=== PATIENT | male | born 1960 | race Caucasian/White ===

== ENCOUNTER 2025-06-02 09:27 | Outpatient (REF) | payer OTHER, SELFPAY | END 2025-06-02 09:28 | disposition home or self-care (01) | LOC: HO.HKASLDS 09:27 | PROVIDERS: PCP Hospitalist; Referring Provider Hospitalist; Visit Provider Internal Medicine Nephrology | DX: I12.9 Hypertensive chronic kidney disease with stage 1 through stage 4 chronic kidney disease, or unspecified chronic kidney disease (principal); N18.31 Chronic kidney disease, stage 3a; Z79.899 Other long term (current) drug therapy; Z87.891 Personal history of nicotine dependence | CPT/HCPCS: 99202 ==

== ENCOUNTER 2025-06-02 09:27 | Outpatient (AMB) | payer OTHER, SELFPAY ==
--- OUTSIDE RECORDS SUMMARY | 2023-12-12 04:00 | XMS_ITS ---
Author Organization [facility] Address [address] [place] [id number] Care Team Providers Care Senior Cobol Developer Name Role Phone Ranjit Butts Unavailable [phone] Encounters Encounter Location Date Provider Diagnosis [facility] [address] [id number] 12/12/2023 Ranjit Butts Plan Of Treatment No Information Progress Notes * Sid LAKEOB:1960 ( 65 yo M)Acc No.[id number]:12/12/2023 Progress Notes Patient: David LA Provider: Klarissa Butts DPM :1960 A ge:63 Y S ex:Male Date:12/12/2023 Address:[address] [place], [place] [id number] Subjective: * Chief Complaints: * * Medical History: Objective: * Vitals: Assessment: Plan: * Treatment: * Images: * The named appointment provid er may or may not be the originator of this progress note, and it is not deemed complete until electronically signed by the appointment provider. Sign off status: Pending * Provider: Klarissa Butts DPM Date: 0 12/12/2023 Generated for Joey de paz/Levi/Emily on: 08/02/2024 10:21 AM EST
--- NOTE | 2025-06-02 09:29 | HO.NEPHOV ---
Vital Signs 06/02/25 09:41 Height 5 ft 11 in Weight 272 lb BMI 37.9 BP 90/60 Blood Pressure Location Lt brachial Position Sitting Pulse 74 Pulse Source Pulse Oximeter Pulse Oximetry (%) 96 Oxygen Delivery Method Room Air Intake Visit Reasons: ENP: CKD STG 3-LVM Environmental Change Analyst Required: No Accompanied by: Spouse Allergies No Known Allergies Allergy (Verified 06/02/25 09:41) HPI Comments Details: I had the pleasure of seeing David in consultation for chronic kidney disease and hypertension. He is 65 years of age and has known coronary artery disease who is status post stenting. His BMI has been high. He has history of atrial fibrillation and had undergone ablation in [facility]. He has history of heart failure but denies CVA, known KARIME, PAD, carotid stenosis or proteinuria. He denies taking excessive nonsteroidal anti-inflammatories, new bone or back pain, epistaxis, photosensitivity, skin rashes, hematuria, hearing deficits, recurrent sinusitis. 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 He is currently taking Zepbound for weight management. His recent serum creatinine has been 1.48. He has not been able to tolerate CPAP. He has some neuropathy( ? etiology) as well as restless legs. He has cut back on his alcohol intake. He denied any new specific complaints at the time of this office visit. [facility] Medical History (Updated 06/02/25 @ 09:30 by Nicholas Oscar MD) Hypomagnesemia Obesity History of heart failure Osteoarthritis cervical spine HLD (hyperlipidemia) COPD with emphysema Hypertension Coronary disease Atrial fibrillation Surgical History S/P coronary artery stent placement S/P ablation of atrial fibrillation Family History Mother Heart disease Hypertension Father Heart disease Hypertension Social History Alcohol intake: current Patient Tobacco Use Status: Former Tobacco user Substance Use Type: Marijuana Physical Exam Vital Signs: Last Vital Signs Pulse 74 06/02/25 09:41 BP 90/60 06/02/25 09:41 Pulse Ox 96 06/02/25 09:41 Oxygen Delivery Method Room Air 06/02/25 09:41 BMI result Body Mass Index 37.9 Const General: comfortable and no acute distress Orientation/consciousness: patient oriented x3 HEENT Head: Yes normocephalic Mouth: Normal oral and palatal mucosa present Eyes EOM: EOMs intact bilaterally Neck Neck: Yes supple Resp Auscultation: clear to auscultation bilaterally Cardio Jugular venous distension: no JVD Rate: regular rate GI Palpation (GI): Soft to palpation Auscultation: normal bowel sounds General: Yes no CVA tenderness Back/Spine/Pelvis Back: no CVA tenderness Skin General skin exam: no rashes or lesions noted Neuro General: patient oriented x3 and moves all extremities Extrem General: Yes no pedal edema Assessment & Plan Assessment & Plan (1) CKD (chronic kidney disease) stage 3, GFR 30-59 ml/min: Code(s): N18.30 - Chronic kidney disease, stage 3 unspecified Category: Medical Qualifiers: Chronic kidney disease stage 3 subtype: stage 3a (GFR 45-59) Qualified Code(s): N18.31 - Chronic kidney disease, stage 3a (2) Hypertension: Code(s): I10 - Essential (primary) hypertension Category: Medical Qualifiers: Hypertension type: primary hypertension Qualified Code(s): I10 - Essential (primary) hypertension Plan David has stage III CKD likely from vascular disease. He is known to coronary artery disease and had undergone PCI as well as stenting. He is at risk for secondary FSGS given his BMI. Given history of heart failure and CKD, I have ordered immunofixation to explore whether he has any amyloidosis ( also has some neuropathic symptoms). He is on JAMES-inhibitor, Zepbound as well as statins. He has history of heart failure and is closely followed up by Cardiology. He should discuss with his PCP / pulmonary MD re CPAP. I have ordered urine studies, renal imaging and follow-up CKD labs as well as 24 hour urine for cr cl. I did not make any medication changes today but is a potential candidate for SGLT2 i as well as amiloride( hypo magnesemia). He is due to have repeat ECHO. All these have been discussed in detail and answered all questions. Follow-up given. Orders: Orders Protein Creatinine Ratio, Ur 3 Months I10 - Essential (primary) hypertension, N18.31 - Chronic kidney disease, stage 3a Immunofixation, Random Urine 3 Months I10 - Essential (primary) hypertension, N18.31 - Chronic kidney disease, stage 3a Immunofixation Pnl, Serum 3 Months I10 - Essential (primary) hypertension, N18.31 - Chronic kidney disease, stage 3a Parathyroid Hormone Intact 3 Months I10 - Essential (primary) hypertension, N18.31 - Chronic kidney disease, stage 3a Vitamin D 25-OH Total 3 Months I10 - Essential (primary) hypertension, N18.31 - Chronic kidney disease, stage 3a Phosphorus 3 Months I10 - Essential (primary) hypertension, N18.31 - Chronic kidney disease, stage 3a Calcium 3 Months I10 - Essential (primary) hypertension, N18.31 - Chronic kidney disease, stage 3a Blood Urea Nitrogen 3 Months I10 - Essential (primary) hypertension, N18.31 - Chronic kidney disease, stage 3a Creatinine 3 Months I10 - Essential (primary) hypertension, N18.31 - Chronic kidney disease, stage 3a Anti DNA DS Antibody 3 Months I10 - Essential (primary) hypertension, N18.31 - Chronic kidney disease, stage 3a Proteinase 3 PR3 Antibodies 3 Months I10 - Essential (primary) hypertension, N18.31 - Chronic kidney disease, stage 3a Myeloperoxidase Antibody 3 Months I10 - Essential (primary) hypertension, N18.31 - Chronic kidney disease, stage 3a Complement C3 3 Months I10 - Essential (primary) hypertension, N18.31 - Chronic kidney disease, stage 3a Complement C4 3 Months I10 - Essential (primary) hypertension, N18.31 - Chronic kidney disease, stage 3a Creatinine Clearance Urine 24U 2 Months I10 - Essential (primary) hypertension, N18.31 - Chronic kidney disease, stage 3a US renal BI 2 Months I10 - Essential (primary) hypertension, N18.31 - Chronic kidney disease, stage 3a Electrolytes 3 Months I10 - Essential (primary) hypertension, N18.31 - Chronic kidney disease, stage 3a Anti Glomerular Basement Memb 3 Months I10 - Essential (primary) hypertension, N18.31 - Chronic kidney disease, stage 3a Phospholipase A2 Receptor Pnl 3 Months I10 - Essential (primary) hypertension, N18.31 - Chronic kidney disease, stage 3a US renal doppler 2 Months I10 - Essential (primary) hypertension, N18.31 - Chronic kidney disease, stage 3a Coding Level of Care Code New Pt Level 4 (56390) Diagnoses Stage 3a chronic kidney disease N18.31 Chronic kidney disease stage 3 subtype: stage 3a (GFR 45-59) Primary hypertension I10 Hypertension type: primary hypertension
[2025-06-02 09:41] VITALS: BP 90/60; PULSE 74; O2SAT 96; BMI 37.9
--- OUTSIDE RECORDS SUMMARY | 2025-06-02 10:21 | XMS_ITS | Clinical Summary ---
Author Organization 175 [facility] Address [address] [place] [address] Phone Care Team Providers Care Remote Sensing Advisor Name Role Phone Mack Díaz MD Primary Care Provider [phone] Allergies No known active allergies Medications coenzyme Q-10 30 mg capsule Take 1 capsule (30 mg total) by mouth 1 (one) time each day. OTC Active pravastatin (PRAVACHOL) 20 mg tablet Take 1 tablet (20 mg total) by mouth 1 (one) time each day. 90 each 3 07/28/19 25 026 Active omeprazole (PriLOSEC) [address] capsule Take 1 capsule (40 mg total) by mouth 1 (one) time each day. Do not crush or chew. 90 capsule 3 09/03/19 25 Active allopurinoL (ZYLOPRIM) 300 mg tablet Take 1 tablet (300 mg total) by mouth 1 (one) time each day. 90 tablet 3 09/08/19 25 Active amLODIPine (NORVASC) 10 mg tablet Take 1 tablet (10 mg total) by mouth 1 (one) time each day. 90 tablet 3 09/08/19 25 Active gabapentin (NEURONTIN) 100 mg capsule Take 1 capsule (100 mg total) by mouth 3 (three) times a day. 90 each 1 11/28/19 25 Active Plavix 75 mg tablet Take 1 tablet (75 mg total) by mouth 1 (one) time each day. Prescribed by cardiology at [facility]. 10/18/19 25 Active ipratropium-al buteroL (Combivent Respimat) 20-100 mcg/actuation inhaler Inhale 1 puff by mouth every 6 (six) hours if needed for wheezing. 1 each 12/18/19 25 026 Active Eliquis 5 mg tablet TAKE 1 TABLET BY MOUTH TWICE A DAY 180 tablet 1 03/11/20 25 Active varenicline tartrate (CHANTIX) 0.5 mg tablet TAKE 1 TABLET BY MOUTH TWICE A DAY 180 tablet 1 02/20/20 25 Active lisinopril (PRINIVIL,ZEST RIL) 40 mg tablet TAKE 1 TABLET BY MOUTH 1 TIME EACH DAY. 90 tablet 03/05/20 25 Active magnesium oxide (MAG-OX) 400 mg (241.3 elemental magnesium) tablet TAKE 1 TABLET BY MOUTH 1 (ONE) TIME EACH DAY. 90 tablet 05/26/20 25 Active magnesium oxide 400 mg magnesium capsule Take 400 mg by mouth 1 (one) time each day. 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 Patient has cardiac cath done ~ LMCA chiquis, LAD <30%, OM1 95% RCA 60%. Stent place in the OM1 which was 95% occulted. Pulmonary nodules 11/04/2024 Assessment & Plan (11/04/2024 4:24 PM EDT): Mr. Pederson is a 64 y.o. male who is part of the lung cancer screening program at [facility] and had his low-dose screening CT on 08/16/2024 which was given a lung RADS score of 4 due to new conglomerate of nodules in the right lower lobe. Due to this finding the patient was presented at multidisciplinary thoracic tumor board conference on 08/25/2024 with recommendations to repeat a chest CT in 3 months time for which he presents for review today. his most recent chest CT scan which was performed 10/21/2024 and shows interval resolution of nodular densities in the lateral right lower lobe. He was given a lung RADS 2 consistent with benign ideology and recommendations for month screening with next LDCT scan due in October 2025. Will be referring back to the lung cancer screening program Hypomagnesemia 09/05/2024 Assessment & Plan (09/08/2024 9:30 AM EST): Orders: Lipid panel with reflex to direct LDL; Future Atrial fibrillation (CMS/HCC V24, CMS/HCC V28) 0 09/04/2024 Assessment & Plan (09/08/2024 9:30 AM EST): Orders: Lipid panel with reflex to direct LDL; Future Assessment & Plan (09/04/2024 9:40 AM EST): Plantar fascial fibromatosis 07/02/2024 Obstructive sleep apnea syndrome 06/26/2024 Schatzki's ring 11/09/2023 Overview (05/12/2024): See endoscopy report, October 2023 status post dilatation Coronary artery calcification 08/13/2023 Overview (05/12/2024): Accidental finding on CT scan of the chest, for lung cancer screening Ventral hernia without obstruction or gangrene 1 09/01/2020 Overview (05/12/2024): Repaired 08/08/2021 Severe obesity (BMI 35.0-39. 9) with comorbidity (CMS/HCC V24, CMS/HCC V28) 12/08/2020 Assessment & Plan (09/08/2024 9:30 AM EST): Orders: Lipid panel with reflex to direct LDL; Future Prediabetes 10/18/2020 Chronic gout due to renal impairment without top hus 09/22/2020 Gastroesophageal reflux disease 08/27/2020 Colon polyps 01/29/2020 Overview (05/12/2024): Multiple, recent colonoscopy October 2023, per GI, repeat in 3 years, in 2026 Hepatic cyst 01/29/2020 Overview (05/12/2024): Clinically stable, patient is not undergoing low-dose CT scan for lung cancer screening, hepatic cyst 8.2 cm on low-dose CT scan 2022, 7.8 cm 2023 HTN (hypertension) 01/29/2020 Assessment & Plan (09/08/2024 9:30 AM EST): Orders: Lipid panel with reflex to direct LDL; Future Assessment & Plan (07/29/2024 4:50 PM EST): His blood pressure is well-controlled in the office today. No change to his regimen. Orders: Ambulatory referral to Cardiology; Future Encounters Date Type Department Care Team Description 05/17/2025 7:38 AM EDT - 05/17/2025 10:41 AM EDT Emergency [facility] Emergency [address] [place] [address] Gideon Saeed MD Generalized abdominal pain (Primary Dx); Nausea Discharge Disposition: Home or Self Care 03/12/2025 2:30 PM EDT Office Visit Orthopedic Surgery - [place] [address] [facility] [address] [place] [id number] Juice Mari, DPM Tendinitis of left ankle (Primary Dx); Follow-up exam; Primary osteoarthritis of both feet; Plantar fascial fibromatosis from Last 3 Months Immunizations Immunization Administration Dates Next Due Influenza Quadravalent, MDCK , 0.5ml, preservative free (Flucelvax) 6mo and older 05/03/2022,05/31/2021 Influenza trivalent, 0.5mL (Fluad) 65yo and olde r 06/09/2023 Influenza, Unspecified 05/31/2021,03/23/2020 Pfizer (ages 12 & older) Bivalent, COVID-19 12/0 03/2022 Pneumococcal conjugate 20 va lent (Prevnar 20, PCV 20) 2mo and older 08/07/2023 Td Tetanus diptheria (Tdvax) 7yo and older 03/12 Tdap Tetanus diptheria acell ular pertussis (Boostrix; Adacel) 7yo and older 07/24/2024,06/17/2010 Surgical History Surgery Date Site/Laterality Comments ELBOW SURGERY 1970's Right PROCEDURE: HISTORICAL ELBOW SURGERY; COMMENT: fx COLONOSCOPY PROCEDURE: HISTORICAL COLONOSCOPY HERNIA REPAIR PROCEDURE: MS REPAIR FIRST ABDOMINAL WALL HERNIA HERNIA REPAIR 08/08/2021 PROCEDURE: HISTORICAL HERNIA REPAIR/MARY; COMMENT: Incarcerated ventral hernia with mesh Medical History Medical History Date Comments HTN (hypertension) 01/29/2020 DX:HTN (hyper tension) Colon polyps 01/29/2020 DX:Colon polyps Hepatic cyst 01/29/2020 DX:Hepatic cyst Gout DX:Gout GERD (gastroesophageal reflux disease) Anxiety Depression Chronic pain disorder Neuromuscular disorder (CMS/HCC V24, CMS/HCC V28 ) NERVES IN NECK Arthritis Joint pain Cancer (CMS/HCC V24, CMS/HCC V28) SKIN H/O heart artery stent 10/20/2024 [facility] Diverticulitis Family History Medical History Relation Name Comments Other cancer Father multiple cancer s, unsure which Heart attack Maternal Grandfather Hypertension Mother ? cancer Heart attack Paternal Grandfather Brain Aneurysm Paternal Grandmother Relation Name Status Comments Father Maternal Grandfather Maternal Grandmother Mother Paternal Grandfather Paternal Grandmother Sister Alive Social History Tobacco Use Types Packs/Day Years Used Date Smoking Tobacco: Former Cigarettes 0.5 52.2 0 07/23/1972 - 10/22/2024 Passive Smoke Exposure: Current Smokeless Tobacco: Never Tobacco Cessation:Counseling Given: Not Answered Alcohol Use Standard Drinks/Week Comments Yes 6 (1 standard drink = 0.6 oz pur e alcohol) SOCIALLY Interpersonal Safety Answer Date Record ed Physical Abuse Unrecognized value 07/04/2024 Verbal Abuse Unrecognized value 07/04/2024 Sex and Gender Information Value Date Recorded Sex Assigned at Male 07/04/2024 11:05 AM EST Legal Sex Male 3:39 PM EST Gender Identity Male 07/04/2024 11:05 AM EST Sexual Orientation Straight 07/04/2024 11 :05 AM EST Obstetrics History Last Filed Vital Signs Vital Sign Reading Time Taken Comments Blood Pressure 110/94 05/17/2025 7:33 AM EDT Pulse 81 05/17/2025 7:33 AM EDT Temperature 36.4 C (97.5 F) 05/17/2025 7:33 AM EDT Respiratory Rate 20 05/17/2025 7:33 AM EDT Oxygen Saturation 99% 05/17/2025 7:33 AM EDT Inhaled Oxygen Concentration - - Weight 125 kg (275 lb) 05/17/2025 8:50 AM EDT Height 182.9 cm (6') 05/17/2025 7:33 AM EDT Body Mass Index 37.3 05/17/2025 7:33 AM EDT Plan of Treatment Upcoming Encounters Date Type Department Care Team (Late st Contact Info) Description 06/22/2025 8:15 AM EST Office Visit Pulmonology - [place] [address] [place] [address] Elizabet Pretty MD [address] [place] [phone] Health Maintenance Due Date Last Done Comments Zoster Vaccines (1 of 2) 1977 RSV Immunization Adult Patients (1 - Risk 50-74 years 1-dose series) 2008 Medicare Annual Wellness Visit 07/01/2022 Social Influencers of Health Screening 07/01/2022 Depression Screening 07/23/2024 COVID-19 Vaccine ( season) 2025 07/24/2024, 06/30/2022, 07/27/2021, Additional history exists Falls Risk Assessment 07/04/2025 07/04/2024 Lung Cancer Screening (Low Dose CT) 08/16/2025 08/16/2024, 08/11/2023, 08/06/2022, Additional history exists Hypertension/CHF/CAD Annual BMP Blood Test 05/17/2026 05/17/2025, 03/18/2025, 03/09/2025, Additional history exists Colorectal Cancer Screening: Colonoscopy 11/07/2026 11/08/2023 Cholesterol Screening (Lipid Panel) 03/09/2030 03/09/2025, 11/25/2024, 06/23/2024, Additional history exists DTaP,Tdap,and Td Vaccines (5 - Td or Tdap) 07/24/2034 07/24/2024, 02/13/2022, 03/12/2020, Additional history exists Pneumococcal Vaccine: 50+ Years Completed 08/07/2023 Abdominal Aortic Aneurysm (AAA) Screen Completed 12/04/2024 Hepatitis C Screening Completed 01/09/2025 Influenza Vaccine Completed 04/02/2025, , 05/03/2022, Additional history exists HIB Vaccines Aged Out No longer eligi ble based on patient's age to complete this topic HPV Vaccines Aged Out No longer eligi ble based on patient's age to complete this topic Hepatitis A Vaccines Aged Out No long er eligible based on patient's age to complete this topic Hepatitis B Vaccines Aged Out No long er eligible based on patient's age to complete this topic IPV Vaccines Aged Out No longer eligi ble based on patient's age to complete this topic MMR Vaccines Aged Out No longer eligi ble based on patient's age to complete this topic Meningococcal ACWY Vaccine Aged Out N o longer eligible based on patient's age to complete this topic Meningococcal B Vaccine Aged Out No l onger eligible based on patient's age to complete this topic RSV Immunization Patients Under 20 months Aged Out No longer eligible based on patient's age to complete this topic Varicella Vaccines Aged Out No longer eligible based on patient's age to complete this topic Medical Devices Implanted Type Area Machine [employer] Device Identifier Shelf Expiration Date Model / Serial / Lot Joints Joints Right: Elbow Procedures Procedure Name Priority Date/Time Associated Diagnosis Comments CT ABDOMEN PELVIS WO CONTRAST STAT 05/17/2025 8:47 AM EDT CBC WITH AUTO DIFFERENTIAL STAT 05/17/2025 7:49 AM EDT COMPREHENSIVE METABOLIC PANEL STAT 05/17/2025 7:49 AM EDT CBC AND DIFFERENTIAL STAT 05/17/2025 7:49 AM EDT MAGNESIUM Routine 05/13/2025 11:28 AM EDT Hypomagnesemia MAGNESIUM Routine 03/18/2025 2:55 PM EDT Hypomagnesemia THYROID STIMULATING HORMONE Routine 03/18/2025 2:55 PM EDT Hypomagnesemia TSH (thyroid-stimulating hormone deficiency) BASIC METABOLIC PANEL Routine 03/18/2025 2:55 PM EDT Hypomagnesemia XR FOOT 3+ VIEWS LEFT Routine 03/12/2025 3:05 PM EDT Follow-up exam CBC WITH AUTO DIFFERENTIAL Routine 03/09/2025 11:12 AM EDT Primary hypertension Prediabetes Hypomagnesemia Severe obesity (BMI 35.0-39.9) with comorbidity (CMS/HCC V24, CMS/HCC V28) Coronary artery calcification MICROALBUMIN CREATININE URINE RATIO Routine 03/09/2025 11:12 AM EDT Primary hypertension Prediabetes Hypomagnesemia Severe obesity (BMI 35.0-39.9) with comorbidity (CMS/HCC V24, CMS/HCC V28) Coronary artery calcification CBC AND DIFFERENTIAL Routine 03/09/2025 11:12 AM EDT Primary hypertension Prediabetes Hypomagnesemia Severe obesity (BMI 35.0-39.9) with comorbidity (CMS/HCC V24, CMS/HCC V28) Coronary artery calcification COMPREHENSIVE METABOLIC PANEL Routine 03/09/2025 11:12 AM EDT Primary hypertension Prediabetes Hypomagnesemia Severe obesity (BMI 35.0-39.9) with comorbidity (CMS/HCC V24, CMS/HCC V28) Coronary artery calcification LIPID PANEL WITH REFLEX TO DIRECT LDL Routine 03/09/2025 11:12 AM EDT Primary hypertension Prediabetes Hypomagnesemia Severe obesity (BMI 35.0-39.9) with comorbidity (CMS/HCC V24, CMS/HCC V28) Coronary artery calcification MAGNESIUM Routine 03/09/2025 11:12 AM EDT Primary hypertension Prediabetes Hypomagnesemia Severe obesity (BMI 35.0-39.9) with comorbidity (CMS/HCC V24, CMS/HCC V28) Coronary artery calcification HEPATITIS C ANTIBODY Routine 01/09/2025 9:09 AM EDT Need for hepatitis C screening test VAS US DUPLEX AAA SCREENING Routine 12/04/2024 8:28 AM EDT Chronic gout due to renal impairment, unspecified site, without tophus (tophi) Primary hypertension Atrial fibrillation, unspecified type (CMS/HCC V24, CMS/HCC V28) Need for hepatitis C screening test CT LUNG SCREENING Routine 08/16/2024 7:3 5 AM EST Encounter for screening for malignant neoplasm of respiratory organs Nicotine dependence, cigarettes, uncomplicated HM COLONOSCOPY Routine 11/08/2023 from Last 3 Months or Most Recently Relevant to Health Maintenance Results * CT Abdomen Pelvis wo Contrast (05/17/2025 8:47 AM EDT) Anatomical Region Laterality Modality Body Computed Tomogra phy 05/17/2025 9:28 AM EDT Impressions 05/17/2025 9:49 AM EDT Fluid distended small bowel with gradual transition to decompressed distal small bowel and some fluid in the right colon. Findings are most likely related to mild ileus in the setting of enteritis rather than obstruction. No abscess or free air. -------- FINAL REPORT -------- Dictated By: CLAUDE DAMICO Dictated Date: 05/17/2025 09:28 ET Assigned Physician: CLAUDE DAMICO Reviewed and Electronically Signed By: CLAUDE DAMICO Signed Date: 05/17/2025 09:49 ET Workstation ID: [id number] Transcribed By: Self Edit Transcribed Date: 05/17/2025 09:28 ET Narrative 05/17/2025 9:49 AM EDT PROCEDURE: CT abdomen/pelvis INDICATION: Pain TECHNIQUE: CT of the abdomen and pelvis without contrast. Multiplanar reformats. The examination was performed utilizing dose reduction techniques. Total DLP 1378 COMPARISON: 01/27/2020 FINDINGS: LOWER THORAX: Bibasilar atelectasis. Moderate coronary artery calcifications. HEPATOBILIARY: Hepatic cysts. Hepatic steatosis. Gallbladder and biliary tree are normal. SPLEEN: No splenomegaly. PANCREAS: No focal mass or ductal dilatation. ADRENALS: No nodules. KIDNEYS/URETERS: Punctate nonobstructive right renal calculus. No ureteral calculi or hydronephrosis. PELVIC ORGANS/BLADDER: Mild prostate enlargement. Bladder is decompressed. PERITONEUM / RETROPERITONEUM: No ascites, fluid collection, or free air. No retroperitoneal lymphadenopathy. VESSELS: Abdominal aorta is normal in size GI TRACT: Fluid-filled, mildly distended small bowel. Fluid filled, distended stomach. Small bowel in the left upper quadrant measures up to 4 cm in diameter. The distal ileum is decompressed. No discrete transition point. Some fluid is seen within the right colon. Normal appendix. Colonic diverticulosis. BONES AND SOFT TISSUES: Scattered degenerative changes seen throughout the bones. Soft tissues are unremarkable. Procedure Note Claude Damico MD - 05/17/2025 PROCEDURE: CT abdomen/pelvis INDICATION: Pain TECHNIQUE: CT of the abdomen and pelvis without contrast. Multiplanarreformats. The examination was performed utilizing dose reductiontechniques. Total DLP 1378 COMPARISON: 01/27/2020 FINDINGS: LOWER THORAX: Bibasilar atelectasis. Moderate coronary arterycalcifications. HEPATOBILIARY: Hepatic cysts. Hepatic steatosis. Gallbladder and biliarytree are normal. SPLEEN: No splenomegaly. PANCREAS: No focal mass or ductal dilatation. ADRENALS: No nodules. KIDNEYS/URETERS: Punctate nonobstructive right renal calculus. Noureteral calculi or hydronephrosis. PELVIC ORGANS/BLADDER: Mild prostate enlargement. Bladder isdecompressed. PERITONEUM / RETROPERITONEUM: No ascites, fluid collection, or free air.No retroperitoneal lymphadenopathy. VESSELS: Abdominal aorta is normal in size GI TRACT: Fluid-filled, mildly distended small bowel. Fluid filled,distended stomach. Small bowel in the left upper quadrant measures up to4 cm in diameter. The distal ileum is decompressed. No discretetransition point. Some fluid is seen within the right colon. Normalappendix. Colonic diverticulosis. BONES AND SOFT TISSUES: Scattered degenerative changes seen throughout thebones. Soft tissues are unremarkable. IMPRESSION: Fluid distended small bowel with gradual transition to decompressed distalsmall bowel and some fluid in the right colon. Findings are most likelyrelated to mild ileus in the setting of enteritis rather than obstruction.No abscess or free air. -------- FINAL REPORT -------- Dictated By: CLAUDE DAMICO Dictated Date: 05/17/2025 09:28 ET Assigned Physician: CLAUDE DAMICO Reviewed and Electronically Signed By: CLAUDE DAMICO Signed Date: 05/17/2025 09:49 ET Workstation ID: [id number] Transcribed By: Self Edit Transcribed Date: 05/17/2025 09:28 ET Gideon Saeed MD [facility] [place] PROCEDURES Final Result * (ABNORMAL) CBC auto differential (05/17/2025 7:49 AM EDT) Only the most recent of2 resultswithin the time period is included. WBC 13.4(H) 4.8 - 10.8 K/mcL LAB HEMETOLOGY METHOD 05/17/2025 8:05 AM [facility] RBC 4.60 4.50 - 5.50 M/mcL LAB HEMETOLOGY METHOD 05/17/2025 8:05 AM [facility] Hemoglobin 14.4 13.5 - 17.5 g/dL LAB HEMETOLOGY METHOD 05/17/2025 8:05 AM [facility] Hematocrit 45.2 42.0 - 54.0 % LAB HEMETOLOGY METHOD 05/17/2025 8:05 AM [facility] MCV 97.4 79.0 - 98.0 FL LAB HEMETOLOGY METHOD 05/17/2025 8:05 AM [facility] MCH 31.0 27.0 - 32.0 pcg LAB HEMETOLOGY METHOD 05/17/2025 8:05 AM [facility] MCHC 31.9(L) 32.0 - 37.0 g/dL LAB HEMETOLOGY METHOD 05/17/2025 8:05 AM [facility] RDW 13.9 11.0 - 15.0 % LAB HEMETOLOGY METHOD 05/17/2025 8:05 AM [facility] Platelets 306 130 - 400 K/mcL LAB HEMETOLOGY METHOD 05/17/2025 8:05 AM [facility] MPV 10.3 7.0 - 11.0 FL LAB HEMETOLOGY METHOD 05/17/2025 8:05 AM [facility] NRBC 0.0 <1.0 % LAB HEMETOLOGY METHOD 05/17/2025 8:05 AM [facility] NRBC Absolute 0.00 <0.10 K/mcL LAB HEMETOLOGY METHOD 05/17/2025 8:05 AM [facility] Neutrophils Relative 81.5 % LAB HEMETOLOGY METHOD 05/17/2025 8:05 AM [facility] Lymphocytes Relative 9.6 % LAB HEMETOLOGY METHOD 05/17/2025 8:05 AM [facility] Monocytes Relative 6.1 % LAB HEMETOLOGY METHOD 05/17/2025 8:05 AM [facility] Eosinophils Relative 2.1 % LAB HEMETOLOGY METHOD 05/17/2025 8:05 AM [facility] Basophils Relative 0.4 % LAB HEMETOLOGY METHOD 05/17/2025 8:05 AM [facility] Immature Granulocytes Relative 0.3 % LAB HEMETOLOGY METHOD 05/17/2025 8:05 AM [facility] Neutrophils Absolute 10.90(H) 1.50 - 7.00 K/mcL LAB HEMETOLOGY METHOD 05/17/2025 8:05 AM [facility] Lymphocytes Absolute 1.28 1.00 - 5.00 K/mcL LAB HEMETOLOGY METHOD 05/17/2025 8:05 AM [facility] Monocytes Absolute 0.81 0.20 - 1.00 K/mcL LAB HEMETOLOGY METHOD 05/17/2025 8:05 AM [facility] Eosinophils Absolute 0.28 0.00 - 0.50 K/mcL LAB HEMETOLOGY METHOD 05/17/2025 8:05 AM [facility] Basophils Absolute 0.05 0.00 - 0.20 K/[facility] LAB HEMETOLOGY METHOD 05/17/2025 8:[address] [facility] Immature Granulocytes Absolute 0.04(H) 0.00 - 0.03 K/[facility] LAB HEMETOLOGY METHOD 05/17/2025 8:05 AM [facility] Blood Venous blood specimen / Unknown Venipuncture / Unknown 05/17/2025 7:49 AM EDT 05/17/2025 7:59 AM EDT us Juni Ahmadi MD LAB BLOOD ORDERABLES Final Resu lt [facility] [address] [place] [address], [place] [phone] * (ABNORMAL) Comprehensive metabolic panel (05/17/2025 7:49 AM EDT) Only the most recent of2 resultswithin the time period is included. Sodium 138 133 - 145 mmol/L LAB CHEMISTRY METHOD 05/17/2025 8:31 AM [facility] Potassium 4.8 3.5 - 5.5 mmol/L LAB CHEMISTRY METHOD 05/17/2025 8:31 AM [facility] Comment:Hemolysis present Chloride 103 96 - 110 mmol/L LAB CHEMISTRY METHOD 05/17/2025 8:31 AM [facility] CO2 30 21 - 32 mmol/L LAB CHEMISTRY METHOD 05/17/2025 8:31 AM [facility] Anion Gap 5 3 - 11 LAB CHEMISTRY METHOD 05/17/2025 8:31 AM [facility] Glucose 98 70 - 100 mg/dL LAB CHEMISTRY METHOD 05/17/2025 8:31 AM [facility] BUN 29(H) 5 - 25 mg/dL LAB CHEMISTRY METHOD 05/17/2025 8:31 AM [facility] Creatinine 1.99(H) 0.70 - 1.30 mg/dL LAB CHEMISTRY METHOD 05/17/2025 8:31 AM [facility] eGFR 36(L) >=60 mL/min/1. 73m2 LAB CHEMISTRY METHOD 05/17/2025 8:31 AM [facility] Comment:Calculation based on the Chronic Kidney Disease Epidemiology Collaboration (CKD-EPI) equation refit without adjustment for race. BUN/Creatinine Ratio 14.6 LAB CHEMISTRY METHOD 05/17/2025 8:31 AM [facility] Calcium 10.6(H) 8.5 - 10.5 mg/dL LAB CHEMISTRY METHOD 05/17/2025 8:31 AM [facility] AST (SGOT) 37 10 - 42 unit/L LAB CHEMISTRY METHOD 05/17/2025 8:31 AM [facility] Comment:Hemolysis present ALT (SGPT) 34 10 - 60 unit/L LAB CHEMISTRY METHOD 05/17/2025 8:31 AM [facility] Alkaline Phosphatase 105 42 - 121 unit/L LAB CHEMISTRY METHOD 05/17/2025 8:31 AM [facility] Total Protein 7.6 6.0 - 8.0 g/dL LAB CHEMISTRY METHOD 05/17/2025 8:31 AM [facility] Albumin 4.4 3.2 - 5.0 g/dL LAB CHEMISTRY METHOD 05/17/2025 8:31 AM [facility] Total Bilirubin 0.6 0.0 - 1.4 mg/dL LAB CHEMISTRY METHOD 05/17/2025 8:31 AM [facility] Blood Venous blood specimen / Unknown Venipuncture / Unknown 05/17/2025 7:49 AM EDT 05/17/2025 7:59 AM EDT us Juni Ahmadi MD LAB BLOOD ORDERABLES Final Resu lt Performing Organization Address City/[facility]/ZIP Co de Phone Number [facility] [address] [place] [address], [place] [phone] * Magnesium (05/13/2025 11:28 AM EDT) Only the most recent of3 resultswithin the time period is included. Pathologist [facility] Magnesium 2.3 1.9 - 2.6 mg/dL LAB CHEMISTRY METHOD 05/13/2025 2:[address] [facility] Comment:Results verified by repeat testing Blood Venous blood specimen / Unknown Venipuncture / Unknown 05/13/2025 11:28 AM EDT 05/13/2025 11:28 AM EDT Tyron Knox MD LAB BLOOD ORDERABLES Final Res ult Performing Organization Address [facility]/ZIP Co de Phone Number [facility] [address] [place] [address], * Thyroid stimulating hormone (03/18/2025 2:55 PM EDT) Pathologist [facility] TSH 1.58 0.40 - 4.00 mcIU/mL LAB CHEMISTRY METHOD 03/18/2025 6:[address] [facility] Blood Venous blood specimen / Unknown Venipuncture / Unknown 03/18/2025 2:55 PM EDT 03/18/2025 2:55 PM EDT Tyron Knox MD LAB BLOOD ORDERABLES Final Res ult Performing Organization Address City/[facility]/ZIP Co de Phone Number [facility] [address] [place] [address], [place] [phone] * (ABNORMAL) Basic metabolic panel (03/18/2025 2:55 PM EDT) Pathologist [facility] Sodium 141 133 - 145 mmol/L LAB CHEMISTRY METHOD 03/18/2025 5:36 PM [facility] Potassium 3.9 3.5 - 5.5 mmol/L LAB CHEMISTRY METHOD 03/18/2025 5:36 PM [facility] Chloride 109 96 - 110 mmol/L LAB CHEMISTRY METHOD 03/18/2025 5:36 PM [facility] CO2 26 21 - 32 mmol/L LAB CHEMISTRY METHOD 03/18/2025 5:36 PM [facility] Anion Gap 6 3 - 11 LAB CHEMISTRY METHOD 03/18/2025 5:36 PM [facility] Glucose 117(H) 70 - 100 mg/dL LAB CHEMISTRY METHOD 03/18/2025 5:36 PM [facility] BUN 24 5 - 25 mg/dL LAB CHEMISTRY METHOD 03/18/2025 5:36 PM [facility] Creatinine 1.48(H) 0.70 - 1.30 mg/dL LAB CHEMISTRY METHOD 03/18/2025 5:36 PM [facility] eGFR 52(L) >=60 mL/min/1. 73m2 LAB CHEMISTRY METHOD 03/18/2025 5:36 PM [facility] Comment:Calculation based on the Chronic Kidney Disease Epidemiology Collaboration (CKD-EPI) equation refit without adjustment for race. BUN/Creatinine Ratio 16.2 LAB CHEMISTRY METHOD 03/18/2025 5:36 PM [facility] Calcium 9.2 8.5 - 10.5 mg/dL LAB CHEMISTRY METHOD 03/18/2025 5:36 PM [facility] Blood Venous blood specimen / Unknown Venipuncture / Unknown 03/18/2025 2:55 PM EDT 03/18/2025 2:55 PM EDT us Tyron Knox MD LAB BLOOD ORDERABLES Final Res ult [facility] [address] [place] [address], [place] [phone] * XR Foot 3+ Views Left (03/12/2025 3:05 PM EDT) Anatomical Region Laterality Modality Lower Extremities, Foot Left Computed Radiography Narrative 03/12/2025 5:55 PM EDT Left foot 3 views Stable postoperative changes Diffuse hindfoot osteoarthritis Juice Mari DPM IMG XR PROCEDURES Final R esult * (ABNORMAL) Lipid panel with reflex to direct LDL (03/09/2025 11:12 AM EDT) Cholesterol 135 0 - 200 mg/dL LAB CHEMISTRY METHOD 03/09/2025 5:[address] [facility] Triglycerides 196(H) 0 - 150 mg/dL LAB CHEMISTRY METHOD 03/09/2025 5:[address] [facility] HDL 47 >=40 mg/dL LAB CHEMISTRY METHOD 03/09/2025 5:[address] [facility] LDL Calculated 49 0 - 100 mg/dL LAB CHEMISTRY METHOD 03/09/2025 5:[address] [facility] Comment:Estimated LDL Calcul ated using equation: Total cholesterol - HDL cholesterol - (Triglycerides/5) VLDL Cholesterol Martín 39.2 mg/dL LAB CHEMISTRY METHOD 03/09/2025 5:[address] [facility] Non HDL Chol. (LDL+VLDL) 88 <145 mg/dL LAB CHEMISTRY METHOD 03/09/2025 5:[address] [facility] Chol/HDL Ratio 2.9 0.0 - 4.4 LAB CHEMISTRY METHOD 03/09/2025 5:24 PM [facility] Blood Venous blood specimen / Unknown Venipuncture / Unknown 03/09/2025 11:12 AM EDT 03/09/2025 11:12 AM EDT Jai Smith MD LAB BLOOD ORDERABLES Final Resul t Performing Organization Address [facility]/ZIP Co de Phone Number [facility] [address] [place] [address], [place] [phone] * (ABNORMAL) Microalbumin creatinine urine ratio (03/09/2025 11:12 AM EDT) Creatinine, Urine 43.0 mg/dL LAB CHEMISTRY METHOD 03/09/2025 2:[address] [facility] Microalb, Ur 42.4(H) 0.0 - 29.0 mg/L LAB CHEMISTRY METHOD 03/09/2025 2:[address] [facility] Microalb/Crea t Ratio 99(H) <30 mg/g creat LAB CHEMISTRY METHOD 03/09/2025 2:[address] [facility] Urine Urine specimen obtained by clean catch procedure / Unknown Non-blood Collection / Unknown 03/09/2025 11:12 AM EDT 03/09/2025 11:12 AM EDT Jai Smith MD LAB URINE ORDERABLES Final Resul t Performing Organization Address [facility] de Phone Number [facility] [address] [place] [address], [place] [phone] * Hepatitis C antibody (01/09/2025 9:09 AM EDT) Hepatitis C Antibody Negative Negative LAB CHEMISTRY METHOD 01/09/2025 2:[address] [facility] Blood Venous blood specimen / Unknown Venipuncture / Unknown 01/09/2025 9:09 AM EDT 01/09/2025 9:09 AM EDT Maribel Pulliam NP LAB BLOOD ORDERABLES Final R esult Performing Organization Address City/[facility]/ZIP Co de Phone Number [facility] [address] [place] [address], [place] [phone] * Vascular US abdominal aorta aneurysm (AAA) screening (12/04/2024 8:28 AM EDT) Anatomical Region Laterality Modality Vascular, Abdomen Ultrasound 12/04/2024 8:45 AM EDT Impressions 12/04/2024 8:48 AM EDT No abdominal aortic aneurysm demonstrated -------- FINAL REPORT -------- Dictated By: Nilson Bermudez Dictated Date: 12/04/2024 08:45 ET Assigned Physician: Nilson Bermudez Reviewed and Electronically Signed By: Nilson Bermudez Signed Date: 12/04/2024 08:48 ET Workstation ID: [id number] Transcribed By: Self Edit Transcribed Date: 12/04/2024 08:45 ET Narrative 12/04/2024 8:48 AM EDT EXAM: Abdominal aortic aneurysm screening TECHNIQUE: Grayscale evaluation of the abdominal aorta. COMPARISON: None FINDINGS: Ultrasound of the aorta was obtained. QUALITY: Adequate. The abdominal aorta is able to be visualized. Habitus and bowel gas obscure some of the anatomy. PROXIMAL AORTIC MEASUREMENTS- CURRENT: 2.5 x 2.1 cm PREVIOUS: None MID AORTIC MEASUREMENTS- CURRENT: 2.5 x 2.0 cm PREVIOUS: None DISTAL AORTIC MEASUREMENTS- CURRENT: 2.3 x 2.6 cm PREVIOUS: None Maximum aneurysmal dimensions- Location- none AP measurement- not applicable Transverse measurement- not applicable Luminal diameter- not applicable Right common iliac diameter: 1.7 cm Left common iliac diameter: 1.5 cm Other significant findings: None Procedure Note Nilson Bermudez MD - 12/04/2024 EXAM: Abdominal aortic aneurysm screening TECHNIQUE: Grayscale evaluation of the abdominal aorta. COMPARISON: None FINDINGS: Ultrasound of the aorta was obtained. QUALITY: Adequate. The abdominal aorta is able to be visualized.Habitus and bowel gas obscure some of the anatomy. PROXIMAL AORTIC MEASUREMENTS- CURRENT: 2.5 x 2.1 cm PREVIOUS: None MID AORTIC MEASUREMENTS- CURRENT: 2.5 x 2.0 cm PREVIOUS: None DISTAL AORTIC MEASUREMENTS- CURRENT: 2.3 x 2.6 cm PREVIOUS: None Maximum aneurysmal dimensions- Location- none AP measurement- not applicable Transverse measurement- not applicable Luminal diameter- not applicable Right common iliac diameter: 1.7 cm Left common iliac diameter: 1.5 cm Other significant findings: None IMPRESSION: No abdominal aortic aneurysm demonstrated -------- FINAL REPORT -------- Dictated By: Nilson Bermudez Dictated Date: 12/04/2024 08:45 ET Assigned Physician: Nilson Bermudez Reviewed and Electronically Signed By: Nilson Bermudez Signed Date: 12/04/2024 08:48 ET Workstation ID: [id number] Transcribed By: Self Edit Transcribed Date: 12/04/2024 08:45 ET Maribel Pulliam NP CV VASCULAR PROCEDURES Final Result * CT Lung Screening (08/16/2024 7:35 AM EST) Anatomical Region Laterality Modality Chest Computed Tomogra phy 08/20/2024 12:2 8 PM EST Addenda Addendum by Laura Mcmullen MD on 08/27/2024 5:08 PM EST Technical error was encountered which resulted in inadvertently placed question [place] throughout the report. Assessment is LungRADS category 4A - 3 month low-dose lung CT or PET/CT. -------- ADDENDUM -------- Dictated By: Laura Mcmullen Dictated Date: 08/27/2024 17:04 ET Assigned Physician: Laura Mcmullen Reviewed and Electronically Signed By: Laura Mcmullen Signed Date: 08/27/2024 17:08 ET Workstation ID: [id number] Transcribed By: Self Edit Transcribed Date: 08/27/2024 17:04 ET Impressions 08/20/2024 12:44 PM EST Impression: There is a new conglomerate of nodules in the right lower lobe. Would recommend a follow-up in 3 months. ASSESSMENT: LungRADS Category ?Category 4A: Suspicious - 3 month LDCT; PET/CT may be used when there is ? 8 mm solid component ? Please see below for additional details of LungRADS Algorithm. Complete Lung RADS description including probabilities of malignancy and prevalence can be found at: http://www.acr.org/Quality-Safety/Resources/LungRADS LungRADS Version 1.0 Assessment Categories Release date: November 17, 2013? Category 0: Incomplete - Additional lung cancer screening CT images and/or comparison with prior CT is needed. ? - Prior chest CT(s) being located for comparison. ? - Part or all of the lungs cannot be evaluated. Category 1: Negative - Continue annual screening with LDCT in 12 months ? - No lung nodules ? - Nodule(s) with specific calcifications (complete, central, popcorn, concentric rings) and fat containing nodules Category 2: Benign Appearance/Behavior - Continue annual screening with LDCT in 12 months ? - Solid nodule < 6 mm or new solid nodule < 4 mm. ? - Part solid nodule(s) < 6 mm total diameter on baseline screening. ? - Ground glass nodule < 20 mm or ? 20 mm and unchanged or slowly growing. ? - Category 3 or 4 nodules unchanged for at least 3 months. Category 3: Probably Benign - 6 month LDCT ? - Solid nodule(s) ? 6 to < 8 mm at baseline OR new 4 mm to < 6 mm. ? - Part solid nodule(s) ? 6 mm total diameter with solid component < 6 mm OR new < 6 mm total diameter. ? - Ground glass nodule ? [address] or new. Category 4A: Suspicious - 3 month LDCT; PET/CT may be used when there is ? 8 mm solid component ? - Solid nodule(s) ? 8 to < 15 mm at baseline OR growing < 8 mm OR new 6 to < 8 mm. ? - Part solid nodule(s) ? 6 mm with solid component ? 6 mm to < 8 mm OR with a new or growing < 4 mm solid component. ? - Endobronchial nodule. Category 4B: Suspicious - Chest CT with or without contrast, PET/CT and/or tissue sampling depending on the probability of malignancy and comorbidities. PET/CT may be used when there is a ? 8 mm solid component. ? - Solid nodule(s) ? 15 mm OR new or growing and ? 8 mm ? - Part solid nodule(s) with a solid component ? 8 mm OR a new or growing ? 4 mm solid component Category 4X: Suspicious - Chest CT with or without contrast, PET/CT and/or tissue sampling depending on the probability of malignancy and comorbidities. PET/CT may be used when there is a ? 8 mm solid component. ? - Category 3 or 4 nodules with additional features or imaging findings that increases the suspicion of malignancy. Category S: Clinically Significant or Potentially Clinically Significant Findings (non lung cancer) Category C: Modifier for patients with a prior diagnosis of lung cancer who return to screening NOTES: 1) Negative screen: does not mean that an individual does not have lung cancer. 2) Size: nodules should be measured on lung windows and reported as the average diameter rounded to the nearest whole number; for round nodules only a single diameter measurement is necessary. 3) Size Thresholds: apply to nodules at first detection, and that grow and reach a higher size category. 4) Growth: an increase in size of > 1.5 mm. 5) Exam Category: each exam should be coded 0-4 based on the nodule(s). 6) Exam Modifiers: S and C modifiers may be added to the 0-4 category. 7) Lung Cancer Diagnosis: Once a patient is diagnosed with lung cancer, further management (including additional imaging such as PET/CT) may be performed for purposes of lung cancer staging; this is no longer screening. 8) Practice audit definitions: a negative screen is defined as categories 1 and 2; a positive screen is defined as categories 3 and 4. 10) Category 4X: nodules with additional imaging findings that increase the suspicion of lung cancer, such as spiculation, GGN that doubles in size in 1 year, enlarged lymph nodes etc. 11) Nodules with features of an intrapulmonary lymph node should be managed by mean diameter and the 0-4 numerical category classification. 12) Category 3 and 4A nodules that are unchanged on interval CT should be coded as category 2, and individuals returned to screening in 12 months. 13) LDCT = low dose chest CT. -------- FINAL REPORT -------- Dictated By: Laura Mcmullen Dictated Date: 08/20/2024 12:28 ET Assigned Physician: Laura Mcmullen Reviewed and Electronically Signed By: Laura Mcmullen Signed Date: 08/20/2024 12:44 ET Workstation ID: [id number] Transcribed By: Self Edit Transcribed Date: 08/20/2024 12:28 ET Narrative 08/20/2024 12:44 PM EST History: 64-year-old year-old 74 pack-year current smoker, asymptomatic, for lung cancer screening. Comparison: 08/11/2023 Technique: Helical volumetric imaging of the thorax was performed, using low- dose technique, without IV contrast. DLP: 175.52 mGy/cm CTDIvol: 4.[address] dose reduction technique utilized with one or more of the following: Automated exposure control and/or adjustment of the mA and/or kV according to patient size and/or use of iterative reconstruction technique. Findings: Lungs: Moderate emphysematous changes. There is a new conglomerate of nodules measuring up to 1 cm, some of this may be related to volume loss. There is no spiculation or suspicious features. There is scarring/volume loss lingula and right middle lobe.? Pleura: There are no pleural effusions. No calcified or noncalcified pleural plaques. Heart: Coronary artery calcifications. Mild cardiomegaly. No pericardial effusion. Esophagus: The esophagus is not significantly thickened or dilated. Lymph Nodes: ?There are no enlarged thoracic lymph nodes. Upper Abdomen: ?This study was performed without contrast and with lower than standard dose. These factors reduce the sensitivity for detection of small lesions in the upper abdomen. Table large liver cyst at the dome. Osseous Structures: ?No suspicious osseous abnormalities. Procedure Note Laura Mcmullen MD - 08/20/2024 History: 64-year-old year-old 74 pack-year current smoker, asymptomatic,for lung cancer screening. Comparison: 08/11/2023 Technique: Helical volumetric imaging of the thorax was performed, usinglow-dose technique, without IV contrast. DLP: 175.52 mGy/cm CTDIvol: 4.[address] dose reduction technique utilized with one or more of the following:Automated exposure control and/or adjustment of the mA and/or kV accordingto patient size and/or use of iterative reconstruction technique. Findings: Lungs: Moderate emphysematous changes. There is a new conglomerate ofnodules measuring up to 1 cm, some of this may be related to volume loss.There is no spiculation or suspicious features. There is scarring/volumeloss lingula and right middle lobe.? Pleura: There are no pleural effusions. No calcified or noncalcifiedpleural plaques. Heart: Coronary artery calcifications. Mild cardiomegaly. No pericardialeffusion. Esophagus: The esophagus is not significantly thickened or dilated. Lymph Nodes: ?There are no enlarged thoracic lymph nodes. Upper Abdomen: ?This study was performed without contrast and with lowerthan standard dose. These factors reduce the sensitivity for detection ofsmall lesions in the upper abdomen. Table large liver cyst at the dome. Osseous Structures: ?No suspicious osseous abnormalities. IMPRESSION: Impression: There is a new conglomerate of nodules in the right lower lobe. Wouldrecommend a follow-up in 3 months. ASSESSMENT: LungRADS Category ?Category 4A: Suspicious - 3 month LDCT; PET/CT may beused when there is ? 8 mm solid component ? Please see below for additional details of LungRADS Algorithm. CompleteLung RADS description including probabilities of malignancy and prevalencecan be found at: http://www.acr.org/Quality-Safety/Resources/LungRADS LungRADS Version 1.0 Assessment Categories Release date: November 17, 2013? Category 0: Incomplete - Additional lung cancer screening CT images and/orcomparison with prior CT is needed. ? - Prior chest CT(s) being located for comparison. ? - Part or all of the lungs cannot be evaluated. Category 1: Negative - Continue annual screening with LDCT in 12 months ? - No lung nodules ? - Nodule(s) with specific calcifications (complete, central, popcorn,concentric rings) and fat containing nodules Category 2: Benign Appearance/Behavior - Continue annual screening withLDCT in 12 months ? - Solid nodule < 6 mm or new solid nodule < 4 mm. ? - Part solid nodule(s) < 6 mm total diameter on baseline screening. ? - Ground glass nodule < 20 mm or ? 20 mm and unchanged or slowlygrowing. ? - Category 3 or 4 nodules unchanged for at least 3 months. Category 3: Probably Benign - 6 month LDCT ? - Solid nodule(s) ? 6 to < 8 mm at baseline OR new 4 mm to < 6 mm. ? - Part solid nodule(s) ? 6 mm total diameter with solid component < 6 mmOR new < 6 mm total diameter. ? - Ground glass nodule ? [address] or new. Category 4A: Suspicious - 3 month LDCT; PET/CT may be used when there is ?8 mm solid component ? - Solid nodule(s) ? 8 to < 15 mm at baseline OR growing < 8 mm OR new 6to < 8 mm. ? - Part solid nodule(s) ? 6 mm with solid component ? 6 mm to < 8 mm ORwith a new or growing < 4 mm solid component. ? - Endobronchial nodule. Category 4B: Suspicious - Chest CT with or without contrast, PET/CT and/ortissue sampling depending on the probability of malignancy andcomorbidities. PET/CT may be used when there is a ? 8 mm solidcomponent. ? - Solid nodule(s) ? 15 mm OR new or growing and ? 8 mm ? - Part solid nodule(s) with a solid component ? 8 mm OR a new or growing? 4 mm solid component Category 4X: Suspicious - Chest CT with or without contrast, PET/CT and/ortissue sampling depending on the probability of malignancy andcomorbidities. PET/CT may be used when there is a ? 8 mm solidcomponent. ? - Category 3 or 4 nodules with additional features or imaging findingsthat increases the suspicion of malignancy. Category S: Clinically Significant or Potentially Clinically SignificantFindings (non lung cancer) Category C: Modifier for patients with a prior diagnosis of lung cancerwho return to screening NOTES: 1) Negative screen: does not mean that an individual does not have lungcancer. 2) Size: nodules should be measured on lung windows and reported as theaverage diameter rounded to the nearest whole number; for round nodulesonly a single diameter measurement is necessary. 3) Size Thresholds: apply to nodules at first detection, and that grow andreach a higher size category. 4) Growth: an increase in size of > 1.5 mm. 5) Exam Category: each exam should be coded 0-4 based on the nodule(s). 6) Exam Modifiers: S and C modifiers may be added to the 0-4 category. 7) Lung Cancer Diagnosis: Once a patient is diagnosed with lung cancer,further management (including additional imaging such as PET/CT) may beperformed for purposes of lung cancer staging; this is no longerscreening. 8) Practice audit definitions: a negative screen is defined as categories1 and 2; a positive screen is defined as categories 3 and 4. 10) Category 4X: nodules with additional imaging findings that increasethe suspicion of lung cancer, such as spiculation, GGN that doubles insize in 1 year, enlarged lymph nodes etc. 11) Nodules with features of an intrapulmonary lymph node should bemanaged by mean diameter and the 0-4 numerical category classification. 12) Category 3 and 4A nodules that are unchanged on interval CT should becoded as category 2, and individuals returned to screening in 12 months. 13) LDCT = low dose chest CT. -------- FINAL REPORT -------- Dictated By: Laura Mcmullen Dictated Date: 08/20/2024 12:28 ET Assigned Physician: Laura Mcmullen Reviewed and Electronically Signed By: Laura Mcmullen Signed Date: 08/20/2024 12:44 ET Workstation ID: [id number] Transcribed By: Self Edit Transcribed Date: 08/20/2024 12:28 ET Black Blair MD IM CT PROCEDURES Edited Result - Final * Colonoscopy (11/08/2023) Colonoscopy No interpretation , Abstracted Anatomical Region Laterality Modality Other Historical Provider HEALTH MAINTENANCE Final Result from Last 3 Months or Most Recently Relevant to Health Maintenance Insurance [facility] [employer] Member Subscriber Plan / Payer (Ef fective 2025-Present) Name:David Pederson Relation to Subscriber:Self Name:David Pederson Payer ID:[id number] Type:Not on file Address: [address] [place] [address] [employer] Member Subscriber Plan / Payer (Ef fective 2024-Present) Name:David Pederson Relation to Subscriber:Self Name:David Pederson Payer ID:[id number] Group ID:[id number] Type:Not on file Address: [address] [place] [phone] Care Teams Remote Sensing Advisor Relationship Specialty Start Date End Date Mack Díaz MD [address] [place] [address] PCP - General Internal Medicine 07/12/21
--- OUTSIDE RECORDS SUMMARY | 2025-06-02 10:21 | XMS_ITS | Patient Health Record ---
Author Organization [facility] Address [address] [facility] [address] [place] [address] Care Team Providers Care Project Manager Entertainment [employer] Name Role Phone RY HAQUE Primary Care Provider [phone] Jai Smith Unavailable [phone] Allergies No Known Allergies Results Component Value Reference Range Notes MAGNESIUM Reviewed date:05/13/2025 03:13:36 PM Interpretation: Performing Lab: Notes/Report: Magnesium 2.3 1.9-2.6 mg/dL Results verifi ed by repeat testing MAGNESIUM Reviewed date:03/19/2025 07:49:08 AM Interpretation: Performing Lab: Notes/Report: Magnesium 1.4 1.9-2.6 mg/dL THYROID STIMULATING HORMONE Reviewed date:03/19/2025 07:48:39 AM Interpretation: Performing Lab: Notes/Report: TSH 1.58 0.40-4.00 mcIU/mL BASIC METABOLIC PANEL Reviewed date:03/19/2025 07:50:45 AM Interpretation: Performing Lab: Notes/Report: Sodium 141 133-145 mmol/L Potassium 3.9 3.5-5.5 mmol/L Chloride 109 96-110 mmol/L CO2 26 21-32 mmol/L Anion Gap 6 3-11 Glucose 117 70-100 mg/dL BUN 24 5-25 mg/dL Creatinine 1.48 0.70-1.30 mg/dL eGFR 52 >=60 mL/min/1.73m2 Calculati on based on the Chronic Kidney Disease Epidemiology Collaboration (CKD-EPI) equation refit without adjustment for race. BUN/Creatinine Ratio 16.2 Calcium 9.2 8.5-10.5 mg/dL Reason For Referral Reason CKD Stage 3a Pleas e evaluate and treat Diagnosis 1 Chronic kidney disea se, stage 3a (N18.31) Referral Organization [facility] Referring Provider First Name RY Referring Provider Last Name GARLAND Referring Provider Speciality Internal M edicine Referred Provider Specialty Nephrology General Notes Please call the [facility] ent to schedule the appointment, Encounter Que casiano Charmain 05/15/2025 04:34:52 PM > Referral Priority Routine Medications Medication SIG (Take, Route, Frequency, Duration) Notes Start Date End Date Status amLODIPine Besylate 5 MG 1 tablet Orally Once a day Active Furosemide 20 MG TAKE 1 TABLET BY OLAMIDE TH TWICE A DAY; Duration: 30 Active Allopurinol 300 MG 1 tablet Orally Once a day Active Zepbound 2.5 MG/0.5ML 2.5 mg Subcutaneou s weekly; Duration: 30 days 04/02/2025 Active Lisinopril 40 MG 1 tablet Orally Once a day Active Clopidogrel Bisulfate 75 MG 1 tablet Orally Once a day A ctive Eliquis 5 MG 1 tablet Orally Twic e a day Active CoQ-10 100 MG as directed Orally Active Magnesium 400 MG as directed Orally t wice a day; Duration: 30 days Active Pantoprazole Sodium 40 MG 1 tablet Orally Once a day Active Trelegy Ellipta 200-62.5-25 MCG/ACT 1 puff Inhalation Once a day; Duration: 30 days 03/11/2025 Active Isosorbide Dinitrate 30 MG 1 tablet Orally daily Active Rosuvastatin Calcium 40 MG 1 tablet Orally Once a day Active Metoprolol Tartrate 50 MG 1 tablet with food Orally Twice a day Active Gabapentin 400 MG 1 capsule Orally 3 t imes a day Active Immunizations Vaccine Route Administration Date Status Comme nts COVID Moderna Unknown 11/17/2020 Administered COVID Moderna Unknown 12/15/2020 Administered COVID Moderna Unknown 07/27/2021 Administered COVID-19 Moderna Unknown 06/30/2022 Administered Fluzone High Dose 67047 IM Intramuscular 04/02/2025 Admini stered Prevnar 20 Unknown 08/07/2023 Administered Td (adult), absorbed Unknown 03/12/2020 Administered TDAP Unknown 06/17/2010 Administered TDAP Unknown 07/24/2024 Administered Problems Problem Type SNOMED Code ICD Code Onset Dates Problem Status W/U Status Risk Notes Problem Morbid obesity (disorder) (015329921) Morbid (severe) obesity due to excess calories (E66.01) Active confirmed Problem Obesity due to excess calories (486277492) Other obesity due to excess calories (E66.09) Active confirmed Problem Hypomagnesemia (261175895) Hypomagnesemia (E83.42) Active confirmed Problem Essential hypertension (55551813) Essential (primary) hypertension (I10) Active confirmed Problem Chronic kidney disease due to hypertension (591896182621872) Hypertensive chronic kidney disease with stage 1 through stage 4 chronic kidney disease, or unspecified chronic kidney disease (I12.9) Active confirmed Problem Atherosclerotic heart disease of kaw coronary artery without angina pectoris (470346737295878) Atherosclerotic heart disease of kaw coronary artery without angina pectoris (I25.10) Active confirmed Problem Chronic obstructive pulmonary disease (39116368) Chronic obstructive pulmonary disease, unspecified (J44.9) Active confirmed Problem Adult osteochondrosis of cervical spine (disorder) (171755608348475) Adult osteochondrosis of spine, cervical region (M42.12) Active confirmed Problem Chronic kidney disease stage 3A (disorder) (800364857) Chronic kidney disease, stage 3a (N18.31) Active confirmed Vital Signs Heart Rate 67 /min 05/15/2025 Temperature 97.6 degrees Fahrenheit 05/15/2025 Blood pressure diastolic 68 mm Hg 05/15/2025 Oximetry 96 % 05/15/2025 Height 6'0'' in 05/15/2025 Blood pressure systolic 110 mm Hg 05/15/2025 Weight 273.2 lbs 05/15/2025 BMI 37.05 kg/m2 05/15/2025 Encounters Encounter Location Date Provider Diagnosis [address] [address] 02/19/2025 [place] Essential (primary) hypertension I10 ; Hyperlipidemia, mixed E78.2 ; Atherosclerotic heart disease of kaw coronary artery without angina pectoris I25.10 ; Chronic obstructive pulmonary disease, unspecified J44.9 ; Adult osteochondrosis of spine, cervical region M42.12 and Obesity, class [address] [address] 03/11/2025 [facility] GUFareed Morbid (severe) obes ity due to excess calories E66.01 ; Dietary counseling and surveillance Z71.3 ; Essential (primary) hypertension I10 ; Hypomagnesemia E83.42 and Chronic obstructive pulmonary disease, unspecified J44.[address] [place] [address] 04/02/2025 RAZA GUL Morbid (severe) obes ity due to excess calories E66.01 ; Dietary counseling and surveillance Z71.3 ; Hypomagnesemia E83.42 and Encounter for immunization Z23 [address] [place] [address] 05/15/2025 RAZAROD HAQUE Other obesity due to excess calories E66.09 ; Dietary counseling and surveillance Z71.3 ; Chronic kidney disease, stage 3a N18.31 and Hypertensive chronic kidney disease with stage 1 through stage 4 chronic kidney disease, or unspecified chronic kidney disease I12.[address] [address] 03/11/[address] [address] 04/13/2025 RAZA GUFareed Morbid (severe) obes ity due to excess calories E66.[address] [address] 05/15/[address] [address] 05/18/2025 RY HAQUE Assessments Encounter Date Diagnosis (ICD Code) Assessment Notes Treatment Notes Treatment Clinical Notes Section Notes 02/19/2025 Essential (primary) hypertension (ICD-10 - I10) 64-year-old obese gentleman with history of coronary disease status post stent, A. fib on anticoagulation status post ablation, cervical spine arthritis hypertension is here today for a new PCP visit plan as following. Hypertension blood pressure is well controlled 128/70. He has no chest pain, he is followed by [facility] cardiology he is currently on lisinopril 40 mg daily amlodipine 10 mg daily Imdur 30 mg daily metoprolol 25 twice a day.cardiology has been following closely. Hyperlipidemia check a lipid profile he is on lovastatin 10 mg daily History of heart failure with unclear EF will get further records he is on Lasix 20 mg twice a day. COPD and emphysema patient has quit smoking will continue with albuterol inhaler. History of paroxysmal A. fib is on metoprolol 25 mg twice a day status post ablation currently in sinus rhythm, continue with metoprolol 25 mg twice a day and Eliquis 5 mg twice a day Atherosclerotic coronary artery disease status post stent on a beta-adela Plavix Eliquis and statins obesity class II patient is interested in weight loss program will make an appointment. Chronic hypomagnesemia patient is on magnesium supplements, will check magnesium level. History of cervical spine arthritis he takes gabapentin 400 mg 3 times a day screening lab work slip has been given 02/19/2025 Hyperlipidemia, mixed (ICD-10 - E78.2) 64-year-old obese gentleman with history of coronary disease status post stent, A. fib on anticoagulation status post ablation, cervical spine arthritis hypertension is here today for a new PCP visit plan as following. Hypertension blood pressure is well controlled 128/70. He has no chest pain, he is followed by [facility] cardiology he is currently on lisinopril 40 mg daily amlodipine 10 mg daily Imdur 30 mg daily metoprolol 25 twice a day.cardiology has been following closely. Hyperlipidemia check a lipid profile he is on lovastatin 10 mg daily History of heart failure with unclear EF will get further records he is on Lasix 20 mg twice a day. COPD and emphysema patient has quit smoking will continue with albuterol inhaler. History of paroxysmal A. fib is on metoprolol 25 mg twice a day status post ablation currently in sinus rhythm, continue with metoprolol 25 mg twice a day and Eliquis 5 mg twice a day Atherosclerotic coronary artery disease status post stent on a beta-adela Plavix Eliquis and statins obesity class II patient is interested in weight loss program will make an appointment. Chronic hypomagnesemia patient is on magnesium supplements, will check magnesium level. History of cervical spine arthritis he takes gabapentin 400 mg 3 times a day screening lab work slip has been given 03/11/2025 Morbid (severe) obesity due to excess calories (ICD-10 - E66.01) David is 64 years old gentleman with coronary artery disease, hypertension, hypomagnesia, COPD and former smoker is here today for medical weight management. Plan is as follows. COPD. On exam he is wheezing. We will add trelegy 200/62.5 0.25 mcg inhaler once a day and continue albuterol inhaler as needed. Low magnesium levels. He is currently on magnesium oxide 400 mg 1 tablet daily and his last magnesium level is 1.5. He will take magnesium oxide 400 mg 3 tablets and recheck magnesium levels in the next 1 week. Diet recommendation. Different dietary modalities discussed with the patient. She was advised to restrict her calories to less than 1500 kcal in 24 hours. Portion control recommended. Low glycemic index foods explained and education material given. Information on meal replacement plans. Mediterranean diet, keto diet, low carbohydrate diet explained and discussed with the patient. Patient advised to download applications for calorie counting. Patient was also advised to use [id number] vitamin D3 supplements and multivitamins. Pharmacotherapy. Different medications and their side effects discussed with the patient. Patient will benefit from pharmacotherapy and does not have any contraindications Exercise. Patient encouraged to To do regular exercise. Encouraged to do aerobic and anaerobic exercises at least 3-4 days a week. Goal is to burn at least 250-500 in One session Behavioral therapy. Importance of behavioral health and weight management discussed with the patient. CBT and motivational interviewing will benefit the patient. If needed will do a referral to a psychologist/psych iatrist. Bariatric surgery. Different procedures discussed with the patient Screening blood work reviewed Assessed. The patient was assessed and patient does not have any behavioral risk or factors affecting goals of therapy Advised. Patient was given a personalized plan regarding the goals and pros and cons of the treatment Agreed. Collaboratively picked up a treatment plan and patient agreed with the plan Assisted. Patient is assisted in achieving goals. Arrange. Schedule follow-up with the patient to provide ongoing assistance and support and to review the management and treatment plan. Counseling. A total of 40 minutes spent with the patient and more than 50% of time was spent with the patient counseling and educating on different diets, side effects of different medications, pros and cons of medical and surgical weight management, importance of exercise and weight loss and psych intervention for weight loss. 03/11/2025 Dietary counseling and surveillance (ICD-10 - Z71.3) David is 64 years old gentleman with coronary artery disease, hypertension, hypomagnesia, COPD and former smoker is here today for medical weight management. Plan is as follows. COPD. On exam he is wheezing. We will add trelegy 200/62.5 0.25 mcg inhaler once a day and continue albuterol inhaler as needed. Low magnesium levels. He is currently on magnesium oxide 400 mg 1 tablet daily and his last magnesium level is 1.5. He will take magnesium oxide 400 mg 3 tablets and recheck magnesium levels in the next 1 week. Diet recommendation. Different dietary modalities discussed with the patient. She was advised to restrict her calories to less than 1500 kcal in 24 hours. Portion control recommended. Low glycemic index foods explained and education material given. Information on meal replacement plans. Mediterranean diet, keto diet, low carbohydrate diet explained and discussed with the patient. Patient advised to download applications for calorie counting. Patient was also advised to use muyh-awk-vsgsxiz vitamin D3 supplements and multivitamins. Pharmacotherapy. Different medications and their side effects discussed with the patient. Patient will benefit from pharmacotherapy and does not have any contraindications Exercise. Patient encouraged to To do regular exercise. Encouraged to do aerobic and anaerobic exercises at least 3-4 days a week. Goal is to burn at least 250-500 in One session Behavioral therapy. Importance of behavioral health and weight management discussed with the patient. CBT and motivational interviewing will benefit the patient. If needed will do a referral to a psychologist/psych iatrist. Bariatric surgery. Different procedures discussed with the patient Screening blood work reviewed Assessed. The patient was assessed and patient does not have any behavioral risk or factors affecting goals of therapy Advised. Patient was given a personalized plan regarding the goals and pros and cons of the treatment Agreed. Collaboratively picked up a treatment plan and patient agreed with the plan Assisted. Patient is assisted in achieving goals. Arrange. Schedule follow-up with the patient to provide ongoing assistance and support and to review the management and treatment plan. Counseling. A total of 40 minutes spent with the patient and more than 50% of time was spent with the patient counseling and educating on different diets, side effects of different medications, pros and cons of medical and surgical weight management, importance of exercise and weight loss and psych intervention for weight loss. 04/02/2025 Morbid (severe) obesity due to excess calories (ICD-10 - E66.01) David is 64 years old gentleman with coronary artery disease, hypertension, COPD, multiple joint osteoarthritis is here today for medical weight management. He was seen a few weeks ago and he is not on any medications at this point. He is interested in Zepbound. Considering his comorbidities and underlying conditions patient will benefit from treatment with GLP-1/Tirazepitide . This will decrease his mortality risk and improve his quality of life and prevent complications from his existing conditions and decrease hospitalization. Hypomagnesemia. His magnesium is running low and is rest of the electrolytes are within normal limits. Etiology unclear he will stay on magnesium supplements and we will check levels before next appointment. If needed we will do a referral to nephrology Dietary recommendations. Food recall was done today and patient advised to be on low calorie, low carbohydrate diet. Restrict calories to less than 1500 kcal in 24 hours. Low glycemic index foods and encouraged. Meal replacements were recommended. Advised to use hwrp-lmj-loniwbi multivitamins and vitamin D. Advised to use calorie counter and adhere to portion control. Monthly goal is to lose 4-6 pounds Pharmacotherapy. He is started on Zepbound 2.5 mg every weekly. Side effects explained to the patient. Goal is to lose 3-5% of body weight in 3 months. Exercise. Patient encouraged to increase frequency, intensity and duration of exercise. Encouraged to burn at least 250-500 kcal in one session. Also encouraged to do weight training Assess. Different risk factors discussed with the patient and addressed Advise. Patient was given clear And specific advise that she will comply with Low-calorie diet and try not to exceed more than 1300 kcal in 24 hours. Agree. Mutually agreed to work together to achieve appropriate goals Assist. Motivational interviewing done. Arrange. Follow-up appointment arranged. Counseling. 20 minutes spent Face to face with the patient more than 50% of time was spent counseling 04/02/2025 Dietary counseling and surveillance (ICD-10 - Z71.3) David is 64 years old gentleman with coronary artery disease, hypertension, COPD, multiple joint osteoarthritis is here today for medical weight management. He was seen a few weeks ago and he is not on any medications at this point. He is interested in Zepbound. Considering his comorbidities and underlying conditions patient will benefit from treatment with GLP-1/Tirazepitide . This will decrease his mortality risk and improve his quality of life and prevent complications from his existing conditions and decrease hospitalization. Hypomagnesemia. His magnesium is running low and is rest of the electrolytes are within normal limits. Etiology unclear he will stay on magnesium supplements and we will check levels before next appointment. If needed we will do a referral to nephrology Dietary recommendations. Food recall was done today and patient advised to be on low calorie, low carbohydrate diet. Restrict calories to less than 1500 kcal in 24 hours. Low glycemic index foods and encouraged. Meal replacements were recommended. Advised to use wmzq-wvs-krnokjo multivitamins and vitamin D. Advised to use calorie counter and adhere to portion control. Monthly goal is to lose 4-6 pounds Pharmacotherapy. He is started on Zepbound 2.5 mg every weekly. Side effects explained to the patient. Goal is to lose 3-5% of body weight in 3 months. Exercise. Patient encouraged to increase frequency, intensity and duration of exercise. Encouraged to burn at least 250-500 kcal in one session. Also encouraged to do weight training Assess. Different risk factors discussed with the patient and addressed Advise. Patient was given clear And specific advise that she will comply with Low-calorie diet and try not to exceed more than 1300 kcal in 24 hours. Agree. Mutually agreed to work together to achieve appropriate goals Assist. Motivational interviewing done. Arrange. Follow-up appointment arranged. Counseling. 20 minutes spent Face to face with the patient more than 50% of time was spent counseling 04/13/2025 Morbid (severe) obesity due to excess calories (ICD-10 - E66.01) 05/15/2025 Other obesity due to excess calories (ICD-10 - E66.09) David is 64 years old gentleman with hypertension, coronary artery disease, COPD, hypomagnesemia, chronic kidney disease stage IIIa is here for medical weight management. Plan is as follows. Chronic kidney disease stage IIIa. Secondary to atherosclerotic disease/arterial sclerosis, long-standing history of hypertension. Discussed with the patient and his causes of chronic kidney disease. He is stable at this point. Advised to control blood pressure, lipid panel, weight and stay hydrated and avoid NSAIDs. Is given referral to see nephrology. Obesity. He has lost 6 pounds roughly since his last visit. Dietary recommendations. Food recall was done today and patient advised to be on low calorie, low carbohydrate diet. Restrict calories to less than 1500 kcal in 24 hours. Low glycemic index foods and encouraged. Meal replacements were recommended. Advised to use yrlm-qgz-chibrbg multivitamins and vitamin D. Advised to use calorie counter and adhere to portion control. Monthly goal is to lose 4-6 pounds Pharmacotherapy. Continue on current regimen. Side effects explained to the patient. Goal is to lose 3-5% of body weight in 3 months. Exercise. Patient encouraged to increase frequency, intensity and duration of exercise. Encouraged to burn at least 250-500 kcal in one session. Also encouraged to do weight training Assess. Different risk factors discussed with the patient and addressed Advise. Patient was given clear And specific advise that she will comply with Low-calorie diet and try not to exceed more than 1300 kcal in 24 hours. Agree. Mutually agreed to work together to achieve appropriate goals Assist. Motivational interviewing done. Arrange. Follow-up appointment arranged. Counseling. 20 minutes spent Face to face with the patient more than 50% of time was spent counseling 05/15/2025 Dietary counseling and surveillance (ICD-10 - Z71.3) David is 64 years old gentleman with hypertension, coronary artery disease, COPD, hypomagnesemia, chronic kidney disease stage IIIa is here for medical weight management. Plan is as follows. Chronic kidney disease stage IIIa. Secondary to atherosclerotic disease/arterial sclerosis, long-standing history of hypertension. Discussed with the patient and his causes of chronic kidney disease. He is stable at this point. Advised to control blood pressure, lipid panel, weight and stay hydrated and avoid NSAIDs. Is given referral to see nephrology. Obesity. He has lost 6 pounds roughly since his last visit. Dietary recommendations. Food recall was done today and patient advised to be on low calorie, low carbohydrate diet. Restrict calories to less than 1500 kcal in 24 hours. Low glycemic index foods and encouraged. Meal replacements were recommended. Advised to use khrf-nws-bgldjle multivitamins and vitamin D. Advised to use calorie counter and adhere to portion control. Monthly goal is to lose 4-6 pounds Pharmacotherapy. Continue on current regimen. Side effects explained to the patient. Goal is to lose 3-5% of body weight in 3 months. Exercise. Patient encouraged to increase frequency, intensity and duration of exercise. Encouraged to burn at least 250-500 kcal in one session. Also encouraged to do weight training Assess. Different risk factors discussed with the patient and addressed Advise. Patient was given clear And specific advise that she will comply with Low-calorie diet and try not to exceed more than 1300 kcal in 24 hours. Agree. Mutually agreed to work together to achieve appropriate goals Assist. Motivational interviewing done. Arrange. Follow-up appointment arranged. Counseling. 20 minutes spent Face to face with the patient more than 50% of time was spent counseling 05/15/2025 Chronic kidney disease, stage 3a (ICD-10 - N18.31) David is 64 years old gentleman with hypertension, coronary artery disease, COPD, hypomagnesemia, chronic kidney disease stage IIIa is here for medical weight management. Plan is as follows. Chronic kidney disease stage IIIa. Secondary to atherosclerotic disease/arterial sclerosis, long-standing history of hypertension. Discussed with the patient and his causes of chronic kidney disease. He is stable at this point. Advised to control blood pressure, lipid panel, weight and stay hydrated and avoid NSAIDs. Is given referral to see nephrology. Obesity. He has lost 6 pounds roughly since his last visit. Dietary recommendations. Food recall was done today and patient advised to be on low calorie, low carbohydrate diet. Restrict calories to less than 1500 kcal in 24 hours. Low glycemic index foods and encouraged. Meal replacements were recommended. Advised to use hlap-pwv-brqervk multivitamins and vitamin D. Advised to use calorie counter and adhere to portion control. Monthly goal is to lose 4-6 pounds Pharmacotherapy. Continue on current regimen. Side effects explained to the patient. Goal is to lose 3-5% of body weight in 3 months. Exercise. Patient encouraged to increase frequency, intensity and duration of exercise. Encouraged to burn at least 250-500 kcal in one session. Also encouraged to do weight training Assess. Different risk factors discussed with the patient and addressed Advise. Patient was given clear And specific advise that she will comply with Low-calorie diet and try not to exceed more than 1300 kcal in 24 hours. Agree. Mutually agreed to work together to achieve appropriate goals Assist. Motivational interviewing done. Arrange. Follow-up appointment arranged. Counseling. 20 minutes spent Face to face with the patient more than 50% of time was spent counseling 03/11/2025 Essential (primary) hypertension (ICD-10 - I10) David is 64 years old gentleman with coronary artery disease, hypertension, hypomagnesia, COPD and former smoker is here today for medical weight management. Plan is as follows. COPD. On exam he is wheezing. We will add trelegy 200/62.5 0.25 mcg inhaler once a day and continue albuterol inhaler as needed. Low magnesium levels. He is currently on magnesium oxide 400 mg 1 tablet daily and his last magnesium level is 1.5. He will take magnesium oxide 400 mg 3 tablets and recheck magnesium levels in the next 1 week. Diet recommendation. Different dietary modalities discussed with the patient. She was advised to restrict her calories to less than 1500 kcal in 24 hours. Portion control recommended. Low glycemic index foods explained and education material given. Information on meal replacement plans. Mediterranean diet, keto diet, low carbohydrate diet explained and discussed with the patient. Patient advised to download applications for calorie counting. Patient was also advised to use ctuh-igu-xpsumdl vitamin D3 supplements and multivitamins. Pharmacotherapy. Different medications and their side effects discussed with the patient. Patient will benefit from pharmacotherapy and does not have any contraindications Exercise. Patient encouraged to To do regular exercise. Encouraged to do aerobic and anaerobic exercises at least 3-4 days a week. Goal is to burn at least 250-500 in One session Behavioral therapy. Importance of behavioral health and weight management discussed with the patient. CBT and motivational interviewing will benefit the patient. If needed will do a referral to a psychologist/psych iatrist. Bariatric surgery. Different procedures discussed with the patient Screening blood work reviewed Assessed. The patient was assessed and patient does not have any behavioral risk or factors affecting goals of therapy Advised. Patient was given a personalized plan regarding the goals and pros and cons of the treatment Agreed. Collaboratively picked up a treatment plan and patient agreed with the plan Assisted. Patient is assisted in achieving goals. Arrange. Schedule follow-up with the patient to provide ongoing assistance and support and to review the management and treatment plan. Counseling. A total of 40 minutes spent with the patient and more than 50% of time was spent with the patient counseling and educating on different diets, side effects of different medications, pros and cons of medical and surgical weight management, importance of exercise and weight loss and psych intervention for weight loss. 02/19/2025 Atherosclerotic heart disease of [place] coronary artery without angina pectoris (ICD-10 - I25.10) 64-year-old obese gentleman with history of coronary disease status post stent, A. fib on anticoagulation status post ablation, cervical spine arthritis hypertension is here today for a new PCP visit plan as following. Hypertension blood pressure is well controlled 128/70. He has no chest pain, he is followed by [facility] cardiology he is currently on lisinopril 40 mg daily amlodipine 10 mg daily Imdur 30 mg daily metoprolol 25 twice a day.cardiology has been following closely. Hyperlipidemia check a lipid profile he is on lovastatin 10 mg daily History of heart failure with unclear EF will get further records he is on Lasix 20 mg twice a day. COPD and emphysema patient has quit smoking will continue with albuterol inhaler. History of paroxysmal A. fib is on metoprolol 25 mg twice a day status post ablation currently in sinus rhythm, continue with metoprolol 25 mg twice a day and Eliquis 5 mg twice a day Atherosclerotic coronary artery disease status post stent on a beta-adela Plavix Eliquis and statins obesity class II patient is interested in weight loss program will make an appointment. Chronic hypomagnesemia patient is on magnesium supplements, will check magnesium level. History of cervical spine arthritis he takes gabapentin 400 mg 3 times a day screening lab work slip has been given 02/19/2025 Chronic obstructive pulmonary disease, unspecified (ICD-10 - J44.9) 64-year-old obese gentleman with history of coronary disease status post stent, A. fib on anticoagulation status post ablation, cervical spine arthritis hypertension is here today for a new PCP visit plan as following. Hypertension blood pressure is well controlled 128/70. He has no chest pain, he is followed by [facility] cardiology he is currently on lisinopril 40 mg daily amlodipine 10 mg daily Imdur 30 mg daily metoprolol 25 twice a day.cardiology has been following closely. Hyperlipidemia check a lipid profile he is on lovastatin 10 mg daily History of heart failure with unclear EF will get further records he is on Lasix 20 mg twice a day. COPD and emphysema patient has quit smoking will continue with albuterol inhaler. History of paroxysmal A. fib is on metoprolol 25 mg twice a day status post ablation currently in sinus rhythm, continue with metoprolol 25 mg twice a day and Eliquis 5 mg twice a day Atherosclerotic coronary artery disease status post stent on a beta-adela Plavix Eliquis and statins obesity class II patient is interested in weight loss program will make an appointment. Chronic hypomagnesemia patient is on magnesium supplements, will check magnesium level. History of cervical spine arthritis he takes gabapentin 400 mg 3 times a day screening lab work slip has been given 03/11/2025 Hypomagnesemia (ICD-10 - E83.42) David is 64 years old gentleman with coronary artery disease, hypertension, hypomagnesia, COPD and former smoker is here today for medical weight management. Plan is as follows. COPD. On exam he is wheezing. We will add trelegy 200/62.5 0.25 mcg inhaler once a day and continue albuterol inhaler as needed. Low magnesium levels. He is currently on magnesium oxide 400 mg 1 tablet daily and his last magnesium level is 1.5. He will take magnesium oxide 400 mg 3 tablets and recheck magnesium levels in the next 1 week. Diet recommendation. Different dietary modalities discussed with the patient. She was advised to restrict her calories to less than 1500 kcal in 24 hours. Portion control recommended. Low glycemic index foods explained and education material given. Information on meal replacement plans. Mediterranean diet, keto diet, low carbohydrate diet explained and discussed with the patient. Patient advised to download applications for calorie counting. Patient was also advised to use dcdy-rfv-lzutkcl vitamin D3 supplements and multivitamins. Pharmacotherapy. Different medications and their side effects discussed with the patient. Patient will benefit from pharmacotherapy and does not have any contraindications Exercise. Patient encouraged to To do regular exercise. Encouraged to do aerobic and anaerobic exercises at least 3-4 days a week. Goal is to burn at least 250-500 in One session Behavioral therapy. Importance of behavioral health and weight management discussed with the patient. CBT and motivational interviewing will benefit the patient. If needed will do a referral to a psychologist/psych iatrist. Bariatric surgery. Different procedures discussed with the patient Screening blood work reviewed Assessed. The patient was assessed and patient does not have any behavioral risk or factors affecting goals of therapy Advised. Patient was given a personalized plan regarding the goals and pros and cons of the treatment Agreed. Collaboratively picked up a treatment plan and patient agreed with the plan Assisted. Patient is assisted in achieving goals. Arrange. Schedule follow-up with the patient to provide ongoing assistance and support and to review the management and treatment plan. Counseling. A total of 40 minutes spent with the patient and more than 50% of time was spent with the patient counseling and educating on different diets, side effects of different medications, pros and cons of medical and surgical weight management, importance of exercise and weight loss and psych intervention for weight loss. 05/15/2025 Hypertensive chronic kidney disease with stage 1 through stage 4 chronic kidney disease, or unspecified chronic kidney disease (ICD-10 - I12.9) David is 64 years old gentleman with hypertension, coronary artery disease, COPD, hypomagnesemia, chronic kidney disease stage IIIa is here for medical weight management. Plan is as follows. Chronic kidney disease stage IIIa. Secondary to atherosclerotic disease/arterial sclerosis, long-standing history of hypertension. Discussed with the patient and his causes of chronic kidney disease. He is stable at this point. Advised to control blood pressure, lipid panel, weight and stay hydrated and avoid NSAIDs. Is given referral to see nephrology. Obesity. He has lost 6 pounds roughly since his last visit. Dietary recommendations. Food recall was done today and patient advised to be on low calorie, low carbohydrate diet. Restrict calories to less than 1500 kcal in 24 hours. Low glycemic index foods and encouraged. Meal replacements were recommended. Advised to use uhdb-wbe-pbvfuef multivitamins and vitamin D. Advised to use calorie counter and adhere to portion control. Monthly goal is to lose 4-6 pounds Pharmacotherapy. Continue on current regimen. Side effects explained to the patient. Goal is to lose 3-5% of body weight in 3 months. Exercise. Patient encouraged to increase frequency, intensity and duration of exercise. Encouraged to burn at least 250-500 kcal in one session. Also encouraged to do weight training Assess. Different risk factors discussed with the patient and addressed Advise. Patient was given clear And specific advise that she will comply with Low-calorie diet and try not to exceed more than 1300 kcal in 24 hours. Agree. Mutually agreed to work together to achieve appropriate goals Assist. Motivational interviewing done. Arrange. Follow-up appointment arranged. Counseling. 20 minutes spent Face to face with the patient more than 50% of time was spent counseling 04/02/2025 Hypomagnesemia (ICD-10 - E83.42) David is 64 years old gentleman with coronary artery disease, hypertension, COPD, multiple joint osteoarthritis is here today for medical weight management. He was seen a few weeks ago and he is not on any medications at this point. He is interested in [employer]. Considering his comorbidities and underlying conditions patient will benefit from treatment with GLP-1/Tirazepitide . This will decrease his mortality risk and improve his quality of life and prevent complications from his existing conditions and decrease hospitalization. Hypomagnesemia. His magnesium is running low and is rest of the electrolytes are within normal limits. Etiology unclear he will stay on magnesium supplements and we will check levels before next appointment. If needed we will do a referral to nephrology Dietary recommendations. Food recall was done today and patient advised to be on low calorie, low carbohydrate diet. Restrict calories to less than 1500 kcal in 24 hours. Low glycemic index foods and encouraged. Meal replacements were recommended. Advised to use msup-iql-akgruxe multivitamins and vitamin D. Advised to use calorie counter and adhere to portion control. Monthly goal is to lose 4-6 pounds Pharmacotherapy. He is started on Zepbound 2.5 mg every weekly. Side effects explained to the patient. Goal is to lose 3-5% of body weight in 3 months. Exercise. Patient encouraged to increase frequency, intensity and duration of exercise. Encouraged to burn at least 250-500 kcal in one session. Also encouraged to do weight training Assess. Different risk factors discussed with the patient and addressed Advise. Patient was given clear And specific advise that she will comply with Low-calorie diet and try not to exceed more than 1300 kcal in 24 hours. Agree. Mutually agreed to work together to achieve appropriate goals Assist. Motivational interviewing done. Arrange. Follow-up appointment arranged. Counseling. 20 minutes spent Face to face with the patient more than 50% of time was spent counseling 04/02/2025 Encounter for immunization (ICD-10 - Z23) David is 64 years old gentleman with coronary artery disease, hypertension, COPD, multiple joint osteoarthritis is here today for medical weight management. He was seen a few weeks ago and he is not on any medications at this point. He is interested in Zep[employer]. Considering his comorbidities and underlying conditions patient will benefit from treatment with GLP-1/Tirazepitide . This will decrease his mortality risk and improve his quality of life and prevent complications from his existing conditions and decrease hospitalization. Hypomagnesemia. His magnesium is running low and is rest of the electrolytes are within normal limits. Etiology unclear he will stay on magnesium supplements and we will check levels before next appointment. If needed we will do a referral to nephrology Dietary recommendations. Food recall was done today and patient advised to be on low calorie, low carbohydrate diet. Restrict calories to less than 1500 kcal in 24 hours. Low glycemic index foods and encouraged. Meal replacements were recommended. Advised to use mheo-ubs-nhnsumc multivitamins and vitamin D. Advised to use calorie counter and adhere to portion control. Monthly goal is to lose 4-6 pounds Pharmacotherapy. He is started on Zepbound 2.5 mg every weekly. Side effects explained to the patient. Goal is to lose 3-5% of body weight in 3 months. Exercise. Patient encouraged to increase frequency, intensity and duration of exercise. Encouraged to burn at least 250-500 kcal in one session. Also encouraged to do weight training Assess. Different risk factors discussed with the patient and addressed Advise. Patient was given clear And specific advise that she will comply with Low-calorie diet and try not to exceed more than 1300 kcal in 24 hours. Agree. Mutually agreed to work together to achieve appropriate goals Assist. Motivational interviewing done. Arrange. Follow-up appointment arranged. Counseling. 20 minutes spent Face to face with the patient more than 50% of time was spent counseling 03/11/2025 Chronic obstructive pulmonary disease, unspecified (ICD-10 - J44.9) David is 64 years old gentleman with coronary artery disease, hypertension, hypomagnesia, COPD and former smoker is here today for medical weight management. Plan is as follows. COPD. On exam he is wheezing. We will add trelegy 200/62.5 0.25 mcg inhaler once a day and continue albuterol inhaler as needed. Low magnesium levels. He is currently on magnesium oxide 400 mg 1 tablet daily and his last magnesium level is 1.5. He will take magnesium oxide 400 mg 3 tablets and recheck magnesium levels in the next 1 week. Diet recommendation. Different dietary modalities discussed with the patient. She was advised to restrict her calories to less than 1500 kcal in 24 hours. Portion control recommended. Low glycemic index foods explained and education material given. Information on meal replacement plans. Mediterranean diet, keto diet, low carbohydrate diet explained and discussed with the patient. Patient advised to download applications for calorie counting. Patient was also advised to use efoo-kxf-uupxdml vitamin D3 supplements and multivitamins. Pharmacotherapy. Different medications and their side effects discussed with the patient. Patient will benefit from pharmacotherapy and does not have any contraindications Exercise. Patient encouraged to To do regular exercise. Encouraged to do aerobic and anaerobic exercises at least 3-4 days a week. Goal is to burn at least 250-500 in One session Behavioral therapy. Importance of behavioral health and weight management discussed with the patient. CBT and motivational interviewing will benefit the patient. If needed will do a referral to a psychologist/psych iatrist. Bariatric surgery. Different procedures discussed with the patient Screening blood work reviewed Assessed. The patient was assessed and patient does not have any behavioral risk or factors affecting goals of therapy Advised. Patient was given a personalized plan regarding the goals and pros and cons of the treatment Agreed. Collaboratively picked up a treatment plan and patient agreed with the plan Assisted. Patient is assisted in achieving goals. Arrange. Schedule follow-up with the patient to provide ongoing assistance and support and to review the management and treatment plan. Counseling. A total of 40 minutes spent with the patient and more than 50% of time was spent with the patient counseling and educating on different diets, side effects of different medications, pros and cons of medical and surgical weight management, importance of exercise and weight loss and psych intervention for weight loss. 02/19/2025 Adult osteochondrosis of spine, cervical region (ICD-10 - M42.12) 64-year-old obese gentleman with history of coronary disease status post stent, A. fib on anticoagulation status post ablation, cervical spine arthritis hypertension is here today for a new PCP visit plan as following. Hypertension blood pressure is well controlled 128/70. He has no chest pain, he is followed by [facility] cardiology he is currently on lisinopril 40 mg daily amlodipine 10 mg daily Imdur 30 mg daily metoprolol 25 twice a day.cardiology has been following closely. Hyperlipidemia check a lipid profile he is on lovastatin 10 mg daily History of heart failure with unclear EF will get further records he is on Lasix 20 mg twice a day. COPD and emphysema patient has quit smoking will continue with albuterol inhaler. History of paroxysmal A. fib is on metoprolol 25 mg twice a day status post ablation currently in sinus rhythm, continue with metoprolol 25 mg twice a day and Eliquis 5 mg twice a day Atherosclerotic coronary artery disease status post stent on a beta-adela Plavix Eliquis and statins obesity class II patient is interested in weight loss program will make an appointment. Chronic hypomagnesemia patient is on magnesium supplements, will check magnesium level. History of cervical spine arthritis he takes gabapentin 400 mg 3 times a day screening lab work slip has been given 02/19/2025 Obesity, class 2 (ICD-10 - E66.812) 64-year-old obese gentleman with history of coronary disease status post stent, A. fib on anticoagulation status post ablation, cervical spine arthritis hypertension is here today for a new PCP visit plan as following. Hypertension blood pressure is well controlled 128/70. He has no chest pain, he is followed by [facility] cardiology he is currently on lisinopril 40 mg daily amlodipine 10 mg daily Imdur 30 mg daily metoprolol 25 twice a day.cardiology has been following closely. Hyperlipidemia check a lipid profile he is on lovastatin 10 mg daily History of heart failure with unclear EF will get further records he is on Lasix 20 mg twice a day. COPD and emphysema patient has quit smoking will continue with albuterol inhaler. History of paroxysmal A. fib is on metoprolol 25 mg twice a day status post ablation currently in sinus rhythm, continue with metoprolol 25 mg twice a day and Eliquis 5 mg twice a day Atherosclerotic coronary artery disease status post stent on a beta-adela Plavix Eliquis and statins obesity class II patient is interested in weight loss program will make an appointment. Chronic hypomagnesemia patient is on magnesium supplements, will check magnesium level. History of cervical spine arthritis he takes gabapentin 400 mg 3 times a day screening lab work slip has been given Plan Of Treatment Pending Test Test Name Order Date [id number] 02/19/2025 CBC with Diff, Platelet, [id number] 01/22 Albumin/Creatinine Ratio,[id number] Lipid Panel With LDL/HDL Ratio-[id number] Comp. Metabolic Panel [id number] Future Test Test Name Order Date [id number] 04/02/2025 Next Appt Details Provider Name:RY HAQUE , 06/15/2025 09:45:00 AM, [address] [place] [address], [phone], Provider Name:RY HAQUE , 06/29/2025 11:00:00 AM, [address] [place] [address], [phone], Insurance Providers Payer Name Payer Address Payer Phone Subscriber Number Group Number Insured Name Patient Relationship to Insured Coverage Start Date Coverage End Date [facility] [address] [id number] David Pederson Self - patient is the insured 1 Medical (General) History Medical History History ICD Code atrial fibrillation status post ablation followed by [facility] cardiology Coronary disease status post stent Hypertension COPD and emphysema Hyperlipidemia Cervical spine osteoarthritis History of heart failure Obesity class to Hypomagnesemia chronic Surgical History Surgery Date(Month/Year) Coronary disease plus a stent August 24 Left foot fasciitis status post repair Right elbow fracture status post gee dom cement
--- OUTSIDE RECORDS SUMMARY | 2025-06-02 10:21 | XMS_ITS | Continuity of Care Document ---
Author Name Pelon Batista Address [address] [place] [id number] Organization Unknown Address [address] [place] [address] Medications No known medications Problems No known problems
--- OUTSIDE RECORDS SUMMARY | 2025-06-02 10:21 | XMS_ITS | Patient Health Record ---
[facility] Address [address] [place] [address] Care Team Providers Care Welder Tech Name Role Phone Ranjit Butts Unavailable [phone] Reason For Referral No Information Plan Of Treatment No Information Insurance Providers Payer Name Payer Address Payer Phone Subscriber Number Group Number Insured Name Patient Relationship to Insured Coverage Start Date Coverage End Date [employer] [address] [facility] [place] [address] [id number] David Pederson Self - patient is the insured
== END 2025-06-02 10:21 | disposition home or self-care (01) ==
PROVIDERS: PCP Hospitalist; Referring Provider Hospitalist; Visit Provider Internal Medicine Nephrology
DX: N18.31 Chronic kidney disease, stage 3a (principal); I10 Essential (primary) hypertension
CPT/HCPCS: 99204